=== PATIENT | female | born 1985 | race Two or more races ===

== ENCOUNTER 2023-04-18 07:55 | Outpatient (OUT) | payer SELFPAY ==
[2023-04-18 09:12] LABS: Basophils Percent Auto 0.3 % (0.2-2.0); Eosinophils Absolute Auto 0.1 10^3/uL (0.0-0.7); Eosinophils Percent Auto 0.9 % (0.9-7.0); Hematocrit 30.8 % (36.0-48.0); Hemoglobin 9.9 g/dL (12.0-16.0); Immature Granulocytes Abs Auto 0.03 10^3/uL (0.00-0.03); Immature Granulocytes Pct Auto 0.4 % (0.0-0.5); Lymphocytes Absolute Auto 1.4 10^3/uL (1.2-3.8); Lymphocytes Percent Auto 18.2 % (20.5-60.0); Mean Corpuscular HGB Conc 32.1 g/dL (29.9-35.2); Mean Corpuscular Hemoglobin 29.5 pg (26.7-34.0); Mean Corpuscular Volume 91.7 fL (81.0-99.0); Mean Platelet Volume 10.4 fL (9.5-13.5); Monocytes Absolute Auto 0.5 10^3/uL (0.3-0.8); Monocytes Percent Auto 6.6 % (1.7-12.0); Neutrophils Absolute Auto 5.6 10^3/uL (1.4-6.5); Neutrophils Percent Auto 73.6 % (43.0-75.0); Platelet Count 251 10^3/uL (150-450); Red Blood Count 3.36 10^6/uL (4.20-5.40); Red Cell Distribution Width 13.4 % (11.0-15.0); White Blood Count 7.6 10^3/uL (4.0-11.0)
[2023-04-18 09:39] LABS: Glucose 1 Hour 105 mg/dL
== END 2023-04-18 07:56 ==
LOC: LAB 07:58
PROVIDERS: PCP Obstetrics & Gynecology; Visit Provider Obstetrics & Gynecology
DX: O09.30 Supervision of pregnancy with insufficient antenatal care, unspecified trimester (principal)
CPT/HCPCS: 36415; 82950; 85025

== ENCOUNTER 2023-04-24 09:03 | Outpatient (OUT) | payer SELFPAY ==
--- NOTE | 2023-04-24 09:10 | US_ITS ---
[address] [address] Patient Name: LEONARDO HERNANDES MRN: [id number] date: 1985 Sex: F Assigned Patient Location: US Current Patient Location: US Accession/Order Number: [id number] Exam Date: 04/24/2023 09:15 Report Date: 04/24/2023 21:17 At the request of: ALEXANDER HORNER Procedure: US OB anatomy EXAMINATION: US OB anatomy, US OB cervical length HISTORY: Late care O09.30, High risk O09.90 COMPARISON: No relevant comparison available. TECHNIQUE: Transabdominal sonographic examination was performed for obstetrical and evaluation. FINDINGS: Number: 1 Heart Rate: 153.4 bpm Amniotic Fluid Volume: Subjectively normal position: Cephalic presentation, longitudinal lie Placental Location: Anterior, grade 0. Placental edge 3.9 cm from the cervical os Cervix Length: 4.9 cm, closed Normally visualized anatomy: Cerebellum, choroid plexus, cisterna magna, lateral cerebral ventricles, orbits, midline falx, hard palate, four-chamber heart, RVOT, LVOT, stomach, kidneys, bladder, umbilical cord insertion into the abdomen, three-vessel cord, cervical spine, thoracic spine, lumbar spine, sacral spine, right upper extremity, left upper extremity, right lower extremity, left lower extremity Suboptimally visualized anatomy: None BIOMETRY: BPD: 7.1 cm 28 weeks 4 days , 16% HC: 27.4 cm 29 weeks 6 days, 34% AC: 25.0 cm 29 weeks 2 days, 43% FL: 5.6 cm 29 weeks 2 days, 35% EFW:1366.8 grams; 3 lbs. 0 oz., 37% FL/AC: 22.2 FL/BPD: 78.4 HC/AC: 1.1 GESTATIONAL AGE: Age by EDC: 29 weeks 2 days TAMI by EDC: 07/08/2023 Age by current US: 29 weeks 2 days TAMI by current US: 07/08/2023 IMPRESSION: Normal anatomy scan *Reference: [facility] Practice Guideline for the performance of Obstetric Ultrasound Examinations, July 30, 2007. Electronically authenticated by: MOHAMUD PULIDO Date: 04/24/2023 21:17
--- NOTE | 2023-04-24 09:10 | US_ITS ---
[address] [address] Patient Name: LEONARDO HERNANDES MRN: [id number] date: 1985 Sex: F Assigned Patient Location: US Current Patient Location: US Accession/Order Number: [id number] Exam Date: 04/24/2023 09:15 Report Date: 04/24/2023 21:17 At the request of: ALEXANDER HORNER Procedure: US OB cervical length EXAMINATION: US OB anatomy, US OB cervical length HISTORY: Late care O09.30, High risk O09.90 COMPARISON: No relevant comparison available. TECHNIQUE: Transabdominal sonographic examination was performed for obstetrical and evaluation. FINDINGS: Number: 1 Heart Rate: 153.4 bpm Amniotic Fluid Volume: Subjectively normal position: Cephalic presentation, longitudinal lie Placental Location: Anterior, grade 0. Placental edge 3.9 cm from the cervical os Cervix Length: 4.9 cm, closed Normally visualized anatomy: Cerebellum, choroid plexus, cisterna magna, lateral cerebral ventricles, orbits, midline falx, hard palate, four-chamber heart, RVOT, LVOT, stomach, kidneys, bladder, umbilical cord insertion into the abdomen, three-vessel cord, cervical spine, thoracic spine, lumbar spine, sacral spine, right upper extremity, left upper extremity, right lower extremity, left lower extremity Suboptimally visualized anatomy: None BIOMETRY: BPD: 7.1 cm 28 weeks 4 days , 16% HC: 27.4 cm 29 weeks 6 days, 34% AC: 25.0 cm 29 weeks 2 days, 43% FL: 5.6 cm 29 weeks 2 days, 35% EFW:1366.8 grams; 3 lbs. 0 oz., 37% FL/AC: 22.2 FL/BPD: 78.4 HC/AC: 1.1 GESTATIONAL AGE: Age by EDC: 29 weeks 2 days TAMI by EDC: 07/08/2023 Age by current US: 29 weeks 2 days TAMI by current US: 07/08/2023 IMPRESSION: Normal anatomy scan *Reference: [facility] Practice Guideline for the performance of Obstetric Ultrasound Examinations, July 30, 2007. Electronically authenticated by: MOHAMUD PULIDO Date: 04/24/2023 21:17
== END 2023-04-24 09:04 | disposition home or self-care (01) ==
LOC: US 09:06
PROVIDERS: PCP Obstetrics & Gynecology; Visit Provider Obstetrics & Gynecology
DX: O09.93 Supervision of high risk pregnancy, unspecified, third trimester (principal); O09.33 Supervision of pregnancy with insufficient antenatal care, third trimester; Z3A.29 29 weeks gestation of pregnancy
CPT/HCPCS: 76805; 76817